=== PATIENT | male | born 1990 | race Two or more races ===

== ENCOUNTER 2024-12-09 11:16 | Inpatient (IN) | payer MEDICAID, OTHER, SELFPAY ==
[2024-12-09] VITALS (7 sets, daily range): BP systolic 97–134; BP diastolic 54–92; PULSE 68–110; RESP 14–18; TEMP 36.3–36.8; O2SAT 96–98; BMI 23.8; BMI 28.7
--- NOTE | ~2024-12-09 | FL_ITS ---
EXAMINATION: FL GUIDANCE ONLY HISTORY: LEFT THUMB CRPP COMPARISON: Correlation is made with plain films of the left thumb dated 12/09/2024. TECHNIQUE: Fluoroscopy time: 12.46 seconds. Cumulative Dose: 0.1727 mGy. DAP: 0.0104 Gym2 Images: 2. FINDINGS: Fluoroscopic spot films of the left thumb demonstrate internal fixation of the previously seen comminuted fracture of the distal phalanx with a K wire. FL/FL guidance in OR IMPRESSION: Fluoroscopy during procedure. Please see procedure report for additional information. Electronically signed by: Xander Monzon MD 12/12/2024 07:07 AM EDT
--- NOTE | ~2024-12-09 | XR_ITS ---
EXAMINATION: XR FINGER, LEFT CLINICAL INFORMATION: Trauma, thumb COMPARISON: None available. TECHNIQUE: PA hand and oblique and lateral views of the first digit of the left hand. FINDINGS: There is an oblique fracture through the proximal metaphysis of the distal phalanx of the thumb. Distal to the fracture, the bone is displaced anteriorly by a full shaft width with proximal migration and overlap measuring 5 mm. There is also an intra-articular fracture with avulsion of the dorsal ulnar base of the distal phalanx. The fragment is retracted to the level of the first proximal phalanx head. XR/XR finger LT min 2V IMPRESSION: Displaced complex intra-articular fracture of the distal phalanx of the left thumb. Distal fragment overlaps the palmar side of the base of the proximal phalanx. There is an avulsed osteochondral fragment from the distal phalanx that is displaced into the region of the IP joint and head of the first proximal phalanx on the ulnar side. Electronically signed by: Easton Wright MD 12/09/2024 11:57 AM EDT
--- NOTE | 2024-12-09 11:29 | ED_ITS ---
HPI - General Adult General Chief complaint: Wound/Laceration Stated complaint: thumb lac Time Seen by Provider: 12/09/24 14:29 History of Present Illness ED Provider: Dr. Ramon Kapoor HPI narrative: RME record for visit, please see Acct:[id number] on 12/09/2024 for full details of the patient's visit Related Data Previous Rx's ?Medication ?Instructions ?Recorded acetaminophen 325 mg tablet 650 mg (2 x 325 mg) PO Q6H PRN 12/12/24 Pain, Mild 1-3,Fever,Headache 30 days #240 tabs amoxicillin 500 mg-potassium 1 tab PO BID 14 days #28 tabs 12/12/24 clavulanate 125 mg tablet (Augmentin) docusate sodium 100 mg capsule 100 mg PO BID 7 days #1 4 caps 12/12/24 oxycodone 5 mg tablet 5 mg PO Q4H PRN Pain, Moderate(Pain Scale 4-6) 7 days #42 tabs Allergies Allergy/AdvReac Type Severity Reaction Status Date / Time No Known Allergies Allergy Verified 12/20/24 15:20 [facility] Past Medical History Medical History (Updated 12/20/24 @ 00:01 by Nazia José) Headache Surgical History Hx of tooth extraction Social History Social History Household Members: Friend(s) Housing: House Do you presently have visiting nurse or other home services: No Alcohol intake: current Alcohol intake frequency: holidays/special occasions only Patient Tobacco Use Status: Current everyday Tobacco user Tobacco use type: Cigarette Cigarettes Per Day: 3 e-Cigarette/Vaping Use: Currently Using service: No Current occupation: rt handed, construction/maintenance Physical Exam ED Vital Signs: BMI result Body Mass Index 23.8 Course Course Course Narrative: RME, this is a rapid medical exam performed by Brandon Mccain please refer to primary provider for complete H&P- 34-year-old male presents for evaluation of a laceration to his left thumb on the dorsal surface. Laceration is quite deep. Plan for x-ray to evaluate for as he is injury and rule out foreign body. Laceration was from a metal curtain. Unknown last tetanus, plan for x-ray Medications Administered Discontinued Medications Generic Name Dose Route Start Last Admin Trade Name Fabian PRN Reason Stop Dose Admin Acetaminophen 650 mg 12/09/24 18:27 12/11/24 17:41 Acetaminophen 325 Mg Tablet PO 650 mg Q6H PRN Administration Pain, Mild 1-3,fever,headache Diphtheria/Tetanus/Acell Pertussis 0.5 ml 12/09/24 11:34 12/09/24 14:37 Diphth,Pertus(Acell),Tet Adult 0.5 Ml Syringe IM 12/09/24 11:35 0.5 ml .ONCE ONE Administration Docusate Sodium 100 mg 12/09/24 21:00 12/12/24 07:14 Docusate Sodium 100 Mg Capsule PO 100 mg BID JACQUELINE Administration Hydromorphone HCl 0.25 mg 12/09/24 18:27 12/12/24 04:38 Hydromorphone Hcl 0.5 Mg/0.5 Ml Syringe IVPUSH 0.25 mg Q4H PRN Administration Pain, Severe (Pain Scale 7-10) Protocol Sodium Chloride 1,000 mls @ 125 mls/hr 12/09/24 14:59 12/09/24 23:18 Ns IV 12/09/24 22:58 Infused .Q8H STA Infusion Cefazolin Sodium/Dextrose 2 gm in 50 mls @ 100 mls/hr 12/09/24 15:19 12/09/24 15:35 Ancef IV 12/09/24 15:48 Infused ONCE ONE Infusion Lactated Ringer's 1,000 mls @ 100 mls/hr 12/09/24 18:27 12/10/24 13:09 Lr IVCONT 12/10/24 08:00 Infused .Q10H JACQUELINE Infusion Cefazolin Sodium/Dextrose 2 gm in 50 mls @ 100 mls/hr 12/09/24 23:00 12/12/24 08:48 Ancef IV Infused Q8H JACQUELINE Infusion Lidocaine HCl 5 ml 12/09/24 14:32 12/09/24 15:24 Lidocaine Hcl 1 % Mpf 5 Ml Vial INFILTRATI 12/09/24 14:33 Not Given ONCE STA Lidocaine HCl 5 ml 12/09/24 14:32 12/09/24 15:24 Lidocaine Hcl 1 % Mpf 5 Ml Vial INFILTRATI 12/09/24 14:33 Not Given ONCE ONE Morphine Sulfate 4 mg 12/09/24 14:59 12/09/24 15:05 Morphine Sulfate 4 Mg/Ml Cartridge IVPUSH 12/09/24 15:00 4 mg ONCE STA Administration Protocol Ondansetron HCl 4 mg 12/09/24 14:59 12/09/24 15:05 Ondansetron Hcl 4 Mg/2 Ml Vial IVPUSH 12/09/24 15:00 4 mg ONCE ONE Administration Oxycodone HCl 5 mg 12/09/24 18:27 12/12/24 09:08 Oxycodone Hcl Immed Release 5 Mg Tablet PO 5 mg Q4H PRN Administration Pain, Moderate(Pain Scale 4-6) Oxycodone HCl 10 mg 12/09/24 21:00 12/12/24 07:14 Oxycodone Hcl Er 10 Mg Tab.Er.12h PO 10 mg BID JACQUELINE Administration Sodium Chloride 3 ml 12/10/24 00:00 12/12/24 07:15 0.9 % Sodium Chloride Flush 3 Ml Syringe IVFLUSH 3 ml QSHIFT JACQUELINE Administration Discharge Plan Discharge Clinical Impression: Open fracture of distal phalanx of left thumb Qualifiers: Encounter type: initial encounter Fracture alignment: displaced Qualified Code(s): S62.522B - Displaced fracture of distal phalanx of left thumb, initial encounter for open fracture Patient Disposition: Xfer Other Transfer Details: Transferred to OR then admission for continued treatment Discharge Date/Time: 12/09/24 15:37
[2024-12-09] MEDS: Diphth,Pertus(ACell),Tet Adult 0.5 ML SYRINGE IM (14:37)
--- NOTE | 2024-12-09 14:53 | ED_ITS ---
HPI - Wound/Laceration General Chief Complaint: Wound/Laceration Stated Complaint: thumb lac Time Seen by Provider: 12/09/24 14:29 Source: patient Mode of arrival: ambulatory Limitations: language barrier (Kiswahili speaking only) History of Present Illness ED Provider: Dr. Ramon Kapoor HPI narrative: 34-year-old male with no significant past medical history who presents emergency department for evaluation of a left thumb injury. Patient states that he was working with his friend. They were removing an iron curtain that was attached to and iron frame. He states that they removed the iron frame and threw it to the ground. The frame then rebounded and struck the patient in the right thumb causing him to have severe pain and a laceration to his thumb. The patient's tetanus status is not up-to-date. He is complaining of 10/10 pain. Related Data Previous Rx's ?Medication ?Instructions ?Recorded acetaminophen 325 mg tablet 650 mg (2 x 325 mg) PO Q6H PRN 12/12/24 Pain, Mild 1-3,Fever,Headache 30 days #240 tabs amoxicillin 500 mg-potassium 1 tab PO BID 14 days #28 tabs 12/12/24 clavulanate 125 mg tablet (Augmentin) docusate sodium 100 mg capsule 100 mg PO BID 7 days #1 4 caps 12/12/24 oxycodone 5 mg tablet 5 mg PO Q4H PRN Pain, Moderate(Pain Scale 4-6) 7 days #42 tabs Allergies Allergy/AdvReac Type Severity Reaction Status Date / Time No Known Allergies Allergy Verified 12/09/24 11:34 Review of Systems 2 Review of Systems: Yes all other systems are reviewed and are negative PMFSH Past Medical History Medical History Headache Surgical History Hx of tooth extraction Social History Social History Household Members: Friend(s) Housing: House Do you presently have visiting nurse or other home services: No Patient Tobacco Use Status: Current everyday Tobacco user Tobacco use type: Cigarette Cigarettes Per Day: 3 e-Cigarette/Vaping Use: Currently Using service: No Physical Exam 2 Vital Signs: Vital Signs: Last Vital Signs Temp 97.2 F 12/12/24 10:37 Pulse 98 12/12/24 10:37 Resp 16 12/12/24 10:37 BP 108/67 12/12/24 10:37 Pulse Ox 97 12/12/24 10:37 O2 Del Method Room Air 12/12/24 10:37 BMI result Body Mass Index 23.8 Exam: General: Awake, alert in no distress Left thumb: 4.0 cm laceration to the distal phalanx of the thumb just below the nail, the patient's thumb appears to be vascularly intact however he is having difficulty extending his PIP joint secondary to pain Medications Administered Discontinued Medications Generic Name Dose Route Start Last Admin Trade Name Freq PRN Reason Stop Dose Admin Acetaminophen 650 mg 12/09/24 18:27 12/11/24 17:41 Acetaminophen 325 Mg Tablet PO 650 mg Q6H PRN Administration Pain, Mild 1-3,fever,headache Diphtheria/Tetanus/Acell Pertussis 0.5 ml 12/09/24 11:34 12/09/24 14:37 Diphth,Pertus(Acell),Tet Adult 0.5 Ml Syringe IM 12/09/24 11:35 0.5 ml .ONCE ONE Administration Docusate Sodium 100 mg 12/09/24 21:00 12/12/24 07:14 Docusate Sodium 100 Mg Capsule PO 100 mg BID JACQUELINE Administration Hydromorphone HCl 0.25 mg 12/09/24 18:27 12/12/24 04:38 Hydromorphone Hcl 0.5 Mg/0.5 Ml Syringe IVPUSH 0.25 mg Q4H PRN Administration Pain, Severe (Pain Scale 7-10) Protocol Sodium Chloride 1,000 mls @ 125 mls/hr 12/09/24 14:59 12/09/24 23:18 Ns IV 12/09/24 22:58 Infused .Q8H STA Infusion Cefazolin Sodium/Dextrose 2 gm in 50 mls @ 100 mls/hr 12/09/24 15:19 12/09/24 15:35 Ancef IV 12/09/24 15:48 Infused ONCE ONE Infusion Lactated Ringer's 1,000 mls @ 100 mls/hr 12/09/24 18:27 12/10/24 13:09 Lr IVCONT 12/10/24 08:00 Infused .Q10H JACQUELINE Infusion Cefazolin Sodium/Dextrose 2 gm in 50 mls @ 100 mls/hr 12/09/24 23:00 12/12/24 08:48 Ancef IV Infused Q8H JACQUELINE Infusion Lidocaine HCl 5 ml 12/09/24 14:32 12/09/24 15:24 Lidocaine Hcl 1 % Mpf 5 Ml Vial INFILTRATI 12/09/24 14:33 Not Given ONCE STA Lidocaine HCl 5 ml 12/09/24 14:32 12/09/24 15:24 Lidocaine Hcl 1 % Mpf 5 Ml Vial INFILTRATI 12/09/24 14:33 Not Given ONCE ONE Morphine Sulfate 4 mg 12/09/24 14:59 12/09/24 15:05 Morphine Sulfate 4 Mg/Ml Cartridge IVPUSH 12/09/24 15:00 4 mg ONCE STA Administration Protocol Ondansetron HCl 4 mg 12/09/24 14:59 12/09/24 15:05 Ondansetron Hcl 4 Mg/2 Ml Vial IVPUSH 12/09/24 15:00 4 mg ONCE ONE Administration Oxycodone HCl 5 mg 12/09/24 18:27 12/12/24 09:08 Oxycodone Hcl Immed Release 5 Mg Tablet PO 5 mg Q4H PRN Administration Pain, Moderate(Pain Scale 4-6) Oxycodone HCl 10 mg 12/09/24 21:00 12/12/24 07:14 Oxycodone Hcl Er 10 Mg Tab.Er.12h PO 10 mg BID JACQUELINE Administration Sodium Chloride 3 ml 12/10/24 00:00 12/12/24 07:15 0.9 % Sodium Chloride Flush 3 Ml Syringe IVFLUSH 3 ml QSHIFT JACQUELINE Administration Medical Decision Making Medical Decision Making [facility] Narrative: 34-year-old male with no significant past medical history who presents emergency department for evaluation of a left thumb injury secondary being struck by a heavy metal object. Physical examination revealed a 4.0 cm laceration to the distal phalanx of the left thumb, the thumb in his vascularly intact however the patient has difficulty extending knee PIP joint. Differential diagnosis: ?Includes but is not limited to laceration, open fracture, tendon injuries, ligament injuries Course: 15:04 X-ray of the patient's left thumb revealed a complex intra-articular fracture of the distal phalanx. This has an open fracture. I did discuss the injury with our covering orthopedic surgeon, Dr. Hernandez and he evaluated the patient in the emergency department. His plan is to take the patient to the operating room to repair this open fracture. Patient was given morphine 4 mg IV, Zofran 4 mg IV for his pain and nausea. He was also given cefazolin 2 g IV and normal saline at 125 cc an hour. Patient was given a Tdap vaccine IM. The patient will be transferred to operating room and admitted to the orthopedic service for treatment. Differential Diagnosis Differential Diagnoses: The differential diagnosis associated with the presentation includes (See above) Admission/Observation Consideration of admission/observation: Escalation of care including admission/observation considered (Yes) Consult Healthcare Provider Management of the patient was discussed with: Cover Making Machine Operator (Orthopedic surgeon: Dr. Hernandez) Radiology Impression Discussion of test interpretation with radiology: I have reviewed the radiologist's reading. Radiologist Impression: XR finger LT min 2V IMPRESSION: Displaced complex intra-articular fracture of the distal phalanx of the left thumb. Distal fragment overlaps the palmar side of the base of the proximal phalanx. There is an avulsed osteochondral fragment from the distal phalanx that is displaced into the region of the IP joint and head of the first proximal phalanx on the ulnar side. Electronically signed by: Easton Wright MD 12/09/2024 11:57 AM EDT Discharge Plan Discharge Clinical Impression: Open fracture of distal phalanx of left thumb Patient Disposition: Xfer Other Transfer Details: Transferred to OR then admission for continued treatment Discharge Date/Time: 12/09/24 15:37
--- NOTE | 2024-12-09 15:57 | PM.CNOR ---
History of Present Illness HPI Consult date: 12/09/24 Requesting physician: Ramon Kapoor Consult reason: fracture Chief complaint: thumb lac Review of Systems Review of Systems: Yes all other systems are reviewed and are negative [facility] Past Medical History Medical History (Updated 12/09/24 @ 15:36 by Bernie Juárez RN) Headache Family History Family history: reviewed and not pertinent Surgical History Surgical History (Updated 12/09/24 @ 15:34 by Bernie Juárez RN) Hx of tooth extraction Social History Social History Patient Tobacco Use Status: Current everyday Tobacco user Tobacco use type: Smokeless Tobacco Have you been hit, kicked, punched, or otherwise hurt by someone within the past year? If so, by whom?: No Are you DNR?: No Advance Directives: No Advance Directives Information Provided: Yes Meds Allergies Allergy/AdvReac Type Severity Reaction Status Date / Time No Known Allergies Allergy Verified 12/09/24 11:34 Active Medications: Current Medications Sodium Chloride (Ns) 1,000 mls @ 125 mls/hr IV .Q8H STA Stop: 12/09/24 22:58 Last Admin: 12/09/24 15:06 Dose: 125 mls/hr Home Medications ?Medication ?Instructions ?Recorded ?Confirmed ?Last Taken ?Type No Known Home Meds 12/09/24 12/09/24 Unknown History Physical Exam Vital Signs: Vital Signs: Last Vital Signs Temp 98.2 F 12/09/24 15:43 Pulse 96 12/09/24 15:43 Resp 18 12/09/24 15:43 BP 134/92 H 12/09/24 15:43 Pulse Ox 96 12/09/24 15:43 O2 Del Method Room Air 12/09/24 15:43 BMI result Body Mass Index 23.8 Const: General: cooperative, healthy appearing, no acute distress and well groomed Orientation/consciousness: oriented to person and oriented to place HEENT: Head: Yes normal to inspection, Yes normocephalic and Yes atraumatic Eyes: General: appearance normal, both eyes and all related structures Alignment and Position: alignment normal Conjunctivae: conjunctivae normal EOM: EOMs intact bilaterally Neck: Neck: Yes normal visual inspection and Yes trachea midline Resp: Other: No rerpiratory distress Effort & Inspection: normal respiratory effort and able to speak in complete sentences Cardio: Other: Palpable radial pulse with no appreciable rythmic abnormalities GI: Other: No abdominal distension Back/Spine/Pelvis: Cervical Spine: normal cervical lordosis and cervical ROM normal Skin: General skin exam: no rashes or lesions noted Neuro: General: oriented to person, oriented to place and gait normal Extrem: Other: Left thumb with open fracture of the distal phalanx. The volar neurovascular bundle appears to be intact with capillary refill intact but just proximal to the nail bed there is deep laceration with exposed bone. Results Labs Labs: All other labs normal. Diagnostic results Wrist/Hand x-ray: image reviewed (Displaced complex intra-articular fracture of the distal phalanx of the left thumb. Distal fragment overlaps the palmar side of the base of the proximal phalanx. There is an avulsed osteochondral fragment from the distal phalanx that is displaced into the region of the IP joint and head of the f) Assessment and Plan (1) Open fracture of distal phalanx of left thumb: Start date: 12/09/24 Qualifiers: Encounter type: initial encounter Fracture alignment: displaced Qualified Code(s): S62.522B - Displaced fracture of distal phalanx of left thumb, initial encounter for open fracture Status: Acute This is a 34-year-old otherwise healthy right-hand dominant gentleman who has an open fracture of the distal phalanx of the left thumb. Appears neurovascularly intact but there is a loss of dorsal skin and exposed bone with contamination of the wound. I recommend a irrigation debridement with percutaneous pinning. I discussed this with him. This may require the need for additional surgery. I informed of the risks of stiffness, infection, need for further surgery, nerve injury, loss of digit. He expressed understanding and we will proceed forward accordingly. Procedures Date of Service Date of Service: 12/09/24
--- NOTE | 2024-12-09 16:09 | P.CONAN_ITS ---
HPI - Anesthesia Eval Consult details Narrative: 34 yo M presenting for I&D with percutaneous pinning of left thumb PMFSH Active Problems Active Problems: All Active Problems Open fracture of distal phalanx of left thumb (Acute) Past Medical History Medical History (Updated 12/09/24 @ 15:36 by Bernie Juárez RN) Headache Family History Family history of problems with anesthesia: No Surgical History Surgical History (Updated 12/09/24 @ 15:34 by Bernie Juárez RN) Hx of tooth extraction History of Problems with Anesthesia: No Social History Social History Patient Tobacco Use Status: Current everyday Tobacco user Tobacco use type: Smokeless Tobacco Have you been hit, kicked, punched, or otherwise hurt by someone within the past year? If so, by whom?: No Are you DNR?: No Advance Directives: No Advance Directives Information Provided: Yes Meds Allergies Allergy/AdvReac Type Severity Reaction Status Date / Time No Known Allergies Allergy Verified 12/09/24 11:34 Active Medications: Current Medications Sodium Chloride (Ns) 1,000 mls @ 125 mls/hr IV .Q8H STA Stop: 12/09/24 22:58 Last Admin: 12/09/24 15:06 Dose: 125 mls/hr Cefazolin Sodium/Dextrose (Ancef) 2 gm in 50 mls @ 100 mls/hr IV PREOP ONE Stop: 12/09/24 16:32 Home Medications ?Medication ?Instructions ?Recorded ?Confirmed ?Last Taken ?Type No Known Home Meds 12/09/24 12/09/24 Un known History Exam Exam Date and Time: 12/09/24 1400 Height,Weight and Vital Signs: Height 5 ft 2 in Weight 58.967 kg Last Vital Signs Temp 98.2 F 12/09/24 15:43 Pulse 96 12/09/24 15:43 Resp 18 12/09/24 15:43 BP 134/92 H 12/09/24 15:43 Pulse Ox 96 12/09/24 15:43 O2 Del Method Room Air 12/09/24 15:43 Airway Mallampati Class: II TM Dist: >3cm Neck ROM: Full Partial: Upper Heart: S1S2 Lungs: CTAB Assessment and Plan Assessment Anesthesia Assessment: Anesthesia Plan Discussed and Chart Reviewed Final Anesthetic Review Family History of Problems with Anesthesia: No History of Problems with Anesthesia: No NPO: Yes ASA Class: II and Emergency Final Preanesthetic Review: No Changes in Pt Med Stat, Meds/Allgs Chart Reviewed, Consent Obtained/Reviewed and Anes Risks/Benef Reviewed Patient Risk: Low Procedure Risk: Low Anesthetic Plan Anesthetic Plan: MAC: and Agree w/ Assess. and Plan Disposition: Standard PACU
--- NOTE | 2024-12-09 17:15 | PM.OP ---
Brief Operative Note Date of Service: 12/09/24 Pre-op diagnosis: left thumb fracture, open Post-op diagnosis: same Procedure: left thumb perc pinning left thumb I&D Implants: 1.6 mm K wire Surgeon: Bijan Hernandez MD Anesthesia: GLMA and local Was an Vessel Scrapper Helper used for this Procedure?: No Estimated blood loss (mL): 25 IV fluids (mL): 500 Pathology: none sent Condition: stable Disposition: PACU
--- NOTE | 2024-12-09 17:23 | PHA.MEDREC ---
Addendum entered by Tory Arreola RPh 12/09/24 17:26: MED REC REVIEWED BY [facility] Original Note: Pharmacy Consult ? Medication Reconciliation Pharmacy reviewed med rec done by nursing. No Known Home Meds confirmed, claims match.
--- NOTE | 2024-12-09 17:26 | PC.NURSE ---
Pt received cefazolin 2gm IV in OR at 1523. Second dose not needed per Dr Hernandez in surgery occurs within one hour of cefazolin. Additional dose pulled by preop RN and given to anesthesia in case needed. Pt left preop at 1615. Second cefazolin dose was not administered in OR and was returned by anesthesiologist.
[2024-12-09] MEDS: Lactated Ringers 1,000 ML 100 ML IVCONT (18:50)
[2024-12-09] MEDS: oxyCODONE HCl ER 10 MG TAB.ER.12H PO (20:22)
[2024-12-10 03:11] VITALS: BP 115/55; PULSE 67; RESP 18; TEMP 35.9; O2SAT 97
[2024-12-10] MEDS: Lactated Ringers 1,000 ML 100 ML IVCONT (03:37)
[2024-12-10] MEDS: oxyCODONE HCl Immed Release 5 MG TABLET PO ×4 (05:53→22:24)
[2024-12-10 07:57] VITALS: BP 101/58; PULSE 74; RESP 16; TEMP 36.2; O2SAT 94
[2024-12-10] MEDS: oxyCODONE HCl ER 10 MG TAB.ER.12H PO ×2 (08:01→20:51)
--- NOTE | 2024-12-10 08:55 | PM.PNORT ---
Subjective Subjective Date of Service: 12/10/24 Interval history: POD 1 s/p CRPP Lt Thumb no overnight events resting in bed with splint intact Physical Exam Vital Signs: Vital Signs: Last Vital Signs Temp 97.1 F 12/10/24 07:57 Pulse 74 12/10/24 07:57 Resp 16 12/10/24 07:57 BP 101/58 L 12/10/24 07:57 Pulse Ox 94 12/10/24 07:57 O2 Del Method Room Air 12/10/24 07:57 BMI result Body Mass Index 28.7 Const: General: cooperative, healthy appearing and no acute distress Resp: Effort & Inspection: normal respiratory effort and able to speak in complete sentences Cardio: Rate: regular rate Peripheral pulses: Peripheral pulses 2+ throughout GI: Palpation (GI): Soft to palpation Skin: General skin exam: no rashes or lesions noted Extrem: Other: Left thumb splint c/d/i. He has good cap refill and sensation intact. Procedures Date of Service Date of Service: 12/10/24 Progress Note: A&P Assessment and plan (1) Open fracture of distal phalanx of left thumb: Status: Acute Assessment and Plan: Continue pain mgmnt iv abx x24 hrs from admission elevate arm on pillows re-eval later today by Dr Hernandez to determine need for further surgery Time Spent With Patient Time: Total time managing care of this patient today ____ minutes. Quality Stroke Does the patient have a stroke diagnosis?: No VTE Prior VTE?: No VTE Risk Level:: Surgical - low VTE Device Contraindication: N/A - Device Ordered VTE Drug Contraindication: Treatment Not Indicated
[2024-12-10 11:34] VITALS: RESP 18
--- NOTE | 2024-12-10 14:56 | MHC.CM.PN ---
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
[2024-12-10 15:25] VITALS: BP 124/68; PULSE 71; RESP 18; TEMP 36.4; O2SAT 93
--- NOTE | 2024-12-10 16:47 | PC.NURSE ---
Patient doing well, able to make needs known, ambulation to the bathroom independently. Medicated for pain throughout the shift. IVF D/C, IV ABT complete. Continue to monitor for needs.
[2024-12-10 19:40] VITALS: BP 121/72; PULSE 77; RESP 18; TEMP 36.7; O2SAT 94
--- NOTE | 2024-12-10 20:49 | HO.POSTANES ---
Post Anesthesia Evaluation Post Anesthesia Evaluation Date of Service: 12/10/24 Vital Signs: Vital Signs Temp Pulse Resp BP Pulse Ox O2 Del Method 12/10/24 19:40 98.0 F 77 18 121/72 94 Room Air 12/10/24 15:25 97.5 F 71 18 124/68 93 Room Air 12/10/24 11:34 18 Anesthesia: Monitored Mental Status: Awake Pain Control: Satisfactory Nausea/Vomiting: None Hydration: Adequate Anesthesia-Related Issues: No Anes. Related Issues
[2024-12-10] MEDS: 0.9 % Sodium Chloride Flush 3 ML SYRINGE IVFLUSH (20:55)
[2024-12-11 03:55] VITALS: BP 101/59; PULSE 82; RESP 16; TEMP 36.9; O2SAT 95
[2024-12-11] MEDS: oxyCODONE HCl ER 10 MG TAB.ER.12H PO ×2 (07:32→20:14)
[2024-12-11] MEDS: 0.9 % Sodium Chloride Flush 3 ML SYRINGE IVFLUSH ×2 (07:35→23:40)
[2024-12-11 07:52] VITALS: BP 102/59; PULSE 75; RESP 18; TEMP 36.8; O2SAT 95
--- NOTE | 2024-12-11 11:28 | PM.PNORT ---
Subjective Subjective Date of Service: 12/11/24 Interval history: POD 2 s/p CRPP Lt Thumb no overnight events resting in bed with splint intact pain well managed Physical Exam Vital Signs: Vital Signs: Last Vital Signs Temp 98.2 F 12/11/24 07:52 Pulse 75 12/11/24 07:52 Resp 18 12/11/24 07:52 BP 102/59 L 12/11/24 07:52 Pulse Ox 95 12/11/24 07:52 O2 Del Method Room Air 12/11/24 07:52 BMI result Body Mass Index 28.7 Const: General: cooperative, healthy appearing and no acute distress Resp: Effort & Inspection: normal respiratory effort and able to speak in complete sentences Cardio: Rate: regular rate Peripheral pulses: Peripheral pulses 2+ throughout GI: Palpation (GI): Soft to palpation Skin: General skin exam: no rashes or lesions noted Extrem: Other: Left thumb splint c/d/i. He has good cap refill and sensation intact. Procedures Date of Service Date of Service: 12/11/24 Progress Note: A&P Assessment and plan (1) Open fracture of distal phalanx of left thumb: Status: Acute Assessment and Plan: Continue pain mgmnt iv abx until DC elevate arm on pillows dressing change to be done tomorrow 12/12/24 Time Spent With Patient Time: Total time managing care of this patient today ____ minutes. Quality Stroke Does the patient have a stroke diagnosis?: No VTE Prior VTE?: No VTE Risk Level:: Surgical - low VTE Device Contraindication: N/A - Device Ordered VTE Drug Contraindication: Treatment Not Indicated
[2024-12-11 15:57] VITALS: BP 106/66; PULSE 77; RESP 16; TEMP 37.1; O2SAT 96
[2024-12-11 20:00] VITALS: BP 112/62; PULSE 83; RESP 18; TEMP 36.3; O2SAT 95
[2024-12-12 03:08] VITALS: BP 100/58; PULSE 69; RESP 16; TEMP 36.4; O2SAT 95
[2024-12-12] MEDS: oxyCODONE HCl ER 10 MG TAB.ER.12H PO (07:14)
[2024-12-12] MEDS: 0.9 % Sodium Chloride Flush 3 ML SYRINGE IVFLUSH (07:15)
[2024-12-12 07:29] VITALS: BP 111/63; PULSE 78; RESP 16; TEMP 36; O2SAT 95
--- NOTE | 2024-12-12 08:41 | P.DS_ITS ---
DS: Providers Provider Date of Service: 12/12/24 Date of admission: 12/09/24 16:25 Date of discharge: 12/12/24 Primary care physician: Unknown Physician Consults: 12/09/24 18:27 Consult to Case Management Routine Comment: DS: Diagnosis Discharge Diagnosis (1) Open fracture of distal phalanx of left thumb: Status: Acute DS: Summary Hospital Course Hospital Course: 34-year-old gentleman was admitted to the medical service after sustaining an injury to his left thumb on 12/09 where he was found to have an open fracture of the distal phalanx. He underwent a successful irrigation and debridement of the left thumb along with the CRPP with Dr. Hernandez. He was transferred to the floor where he recovered. The patient continued with IV antibiotics throughout his stay. Dressing change was performed upon discharge. No complications noted. Patient will keep the bandage clean dry and intact until seen in the office on 12/14/2024 for a follow up appointment. Patient will be discharged on Augmentin which she should take daily. Time Attestation Discharge Coordination Time (in mins): 30 Quality: Safe Use of Opioids Does Pt have an Active Cancer Diagnosis on the Problem List?: No Quality: Stroke Does the patient have a stroke diagnosis?: No Physical Exam Vital Signs: Vital Signs: Last Vital Signs Temp 96.8 F 12/12/24 07:29 Pulse 78 12/12/24 07:29 Resp 16 12/12/24 07:29 BP 111/63 12/12/24 07:29 Pulse Ox 95 12/12/24 07:29 O2 Del Method Room Air 12/12/24 07:29 BMI result Body Mass Index 28.7 Discharge Plan Discharge Anticipated Discharge Date/Time: 12/12/24 08:25 Patient Disposition: Home, Self-Care Discharge Diagnosis: I&D w/ CRPP left thumb Referrals: Harrison López PA [Physician Advanced Practice Nurse Psychotherapist, Hand Surgery] - 1 Week Referral Note: 12/14/24 09:30 [facility] Harrison López PA Discharge Medications: New acetaminophen 325 mg Tablet 650 mg PO Q6H PRN (Reason: Pain, Mild 1-3,Fever,Headache) 30 Days Qty: 240 0RF docusate sodium 100 mg Capsule 100 mg PO BID 7 Days Qty: 14 0RF oxycodone 5 mg Tablet 5 mg PO Q4H PRN (Reason: Pain, Moderate(Pain Scale 4-6)) 7 Days Qty: 42 0RF Rx Instructions: Partial Fill upon patient request. amoxicillin-pot clavulanate [Augmentin] 500-125 mg tablet 1 tab PO BID 14 Days Qty: 28 0RF Discharge Orders: Discharge Order (Routine); Ordered 12/12/24 Ordered By: Alhaji Nicolas Diet: Regular diet Activity on Discharge: Use cane or walker Stand Alone Forms: Patient Portal Discharge page Print Language: Chadian Care Plan Goals: . Health Concerns: None Plan of Treatment: Keep splint clean dry and intact Elevate arm above heart level Take antibiotics as directed Follow up with Orthopedics 12/14/24 09:30 [facility] Harrison López PA Assessment: As above
[2024-12-12] MEDS: oxyCODONE HCl Immed Release 5 MG TABLET PO (09:08)
--- NOTE | 2024-12-12 10:29 | MHC.CM.PN ---
Patient is discharged to home today self care. He has arranged for private transportation home.
[2024-12-12 10:37] VITALS: BP 108/67; PULSE 98; RESP 16; TEMP 36.2; O2SAT 97
--- NOTE | 2024-12-12 11:11 | PC.NURSE ---
DC instructions completed with bushwalk[employer] guide services Juanita. Pt had specific questions about admission report reflecting his workplace injury. Pt was instructed to follow up with medical records, number given to pt in DC packet.
--- NOTE | 2024-12-19 08:05 | W.PM.OPN ---
Operative Note Operative Note Date of Service: 12/09/24 Narrative: Date of Service: 12/09/24 Pre-op diagnosis: left thumb fracture, open Post-op diagnosis: same Procedure: left thumb perc pinning left thumb I&D Implants: 1.6 mm K wire Surgeon: Bijan Hernandez MD Anesthesia: GLMA and local Was an Residential Green Building Designer used for this Procedure?: No Estimated blood loss (mL): 25 IV fluids (mL): 500 Pathology: none sent Condition: stable Disposition: PACU Procedure in detail: Pateint was brought to the OR and prepped and draped in standard sterile fashion. A time-out was called to identify proper site, proper procedure and antibiotics were administered intravenously. I began by examinin the thumb. There was an open laceration at the level of the germinal matrix. A freer was used to remove the nail. The distal tip was vascularized but the distal phalanx was comminuted. The wound was free of obvious contamination. I removed all excess debris and tried to preserve as much bone as possible.I irrigated copiously and then placed a 0.62 K-wire, from distal to proximal and across the DIP joint. All attempts were made to obtain anatomic alignment in both plains. This was achieved and confirmed with visual inspection and orthogonal radiographic imaging. Once I was satisfied with the pinning, I further irrigated and confirmed the vascular status of the distal thumb. I then closed with 3.0 Nylon, loosely. The wound was then dressed with sterile dressing and the thumb splinted in a well-padded splint.
== END 2024-12-12 11:10 | disposition home or self-care (01) | DRG 316 ==
LOC: HO.ED 15:16 → HO.SSS 15:23 → HO.SSSA 16:29 → HO.S3 18:29
PROVIDERS: Orthopaedic Surgery; Admitting Provider Physician Assistant; Emergency Provider Emergency Medicine Emergency Medical Services; Visit Provider Physician Assistant
PROC: 0PSS34Z Reposition Left Thumb Phalanx with Internal Fixation Device, Percutaneous Approach (ICD-10-PCS; CPT 26756; principal; 2024-12-09 15:30)
DX: S62.522B Displaced fracture of distal phalanx of left thumb, initial encounter for open fracture (principal); F17.210 Nicotine dependence, cigarettes, uncomplicated; W20.8XXA Other cause of strike by thrown, projected or falling object, initial encounter; Z71.6 Tobacco abuse counseling; Z79.899 Other long term (current) drug therapy
CPT/HCPCS: 26756; 11012; 73140; 90715; 97166; 99221; 99282; J0690; J1171; J2003; J2250; J2270; J2405; J2704; J2795; J3010; J7120

== ENCOUNTER → 2024-12-09 11:34 | Outpatient (BNV) | payer SELFPAY | PROVIDERS: Visit Provider Radiology Diagnostic Radiology | DX: S62.522A Displaced fracture of distal phalanx of left thumb, initial encounter for closed fracture (principal) | CPT/HCPCS: 73140 ==

== ENCOUNTER → 2024-12-09 15:14 | Outpatient (BNV) | payer MEDICAID, SELFPAY | PROVIDERS: Emergency Provider Emergency Medicine Emergency Medical Services; Visit Provider Orthopaedic Surgery | DX: S62.522B Displaced fracture of distal phalanx of left thumb, initial encounter for open fracture (principal) | CPT/HCPCS: 99024 ==

== ENCOUNTER 2024-12-14 07:48 | Outpatient (REF) | payer MEDICAID, SELFPAY ==
--- NOTE | ~2024-12-14 | XR_ITS ---
EXAMINATION: XR HAND, LEFT CLINICAL INFORMATION: M79.642 - Pain in left hand COMPARISON: 12/09/2024. TECHNIQUE: PA, lateral, and oblique views of the left hand. FINDINGS: There has been interval K wire placement in the thumb traversing the distal and proximal phalanges. This is fixating the previously seen comminuted intra-articular distal phalanx fracture, with confucianism of anatomical alignment. No gross bony healing evident. There is associated laceration of the soft tissues of the thumb. There is bandaging material overlying the thumb. The remainder of the bones and soft tissues of the left hand and wrist appear normal. XR/XR hand LT min 3V IMPRESSION: K wire fixation of comminuted intra-articular distal phalanx fracture of the thumb. Electronically signed by: Shaggy Carmen MD 12/14/2024 09:42 AM EDT
== END 2024-12-14 07:49 | disposition home or self-care (01) ==
LOC: HO.HOSX 07:48
DX: S62.522B Displaced fracture of distal phalanx of left thumb, initial encounter for open fracture (principal); X58.XXXA Exposure to other specified factors, initial encounter
CPT/HCPCS: 29125; 73130; 99212

== ENCOUNTER 2024-12-14 09:27 | Outpatient (AMB) | payer MEDICAID, SELFPAY ==
--- NOTE | 2024-12-14 09:32 | MHC.OFFVIS ---
Vital Signs 12/14/24 09:35 Height 5 ft 2 in Weight 157 lb BMI 28.7 Intake Visit Reasons: PO-L Thumb CRPP/ I&D 12/09 NE Intake Note: Malcolm is a 34 year old right hand dominant male, new patient, who presents today post-operatively status post Left Thumb CRPP and I&D, DOS: 12/09/[address] Hernandez. Patient presented to [facility] ED on 12/09/24 reporting him and his friend were removing an iron curtain, while at work, that was attached to and iron frame. They removed the iron frame and threw it on the ground. The frame then rebounded striking his right thumb. Patient complains of pain today on the dorsal aspect of the IP joint of the left thumb. Patient never picked up the Oxycodone so he has been taking Tylenol along with the Augmentin. Service Learning Coordinator Required: Yes Service Learning Coordinator Language: Nurses Supervisor Services: Service Learning Coordinator Present Service Learning Coordinator Name: KIARA Isaac/LISA Allergies No Known Allergies Allergy (Verified 12/14/24 09:37) HPI HPI PO-L Thumb CRPP/ I&D 12/09 NE: Details: Malcolm is a 34 year old right hand dominant male, new patient, who presents today post-operatively status post Left Thumb CRPP and I&D, DOS: 12/09/[address] Hernandez. Patient presented to [facility] ED on 12/09/24 reporting him and his friend were removing an iron curtain, while at work, that was attached to and iron frame. They removed the iron frame and threw it on the ground. The frame then rebounded striking his right thumb. Patient complains of pain today on the dorsal aspect of the IP joint of the left thumb. Patient never picked up the Oxycodone so he has been taking Tylenol along with the Augmentin. PFSH Medical History Headache Surgical History Hx of tooth extraction Social History (Updated 12/14/24 @ 09:43 by KIARA Rojas) Household Members: Friend(s) Housing: House Do you presently have visiting nurse or other home services: No Alcohol intake: current Alcohol intake frequency: holidays/special occasions only Patient Tobacco Use Status: Current everyday Tobacco user Tobacco use type: Cigarette Cigarettes Per Day: 3 e-Cigarette/Vaping Use: Currently Using service: No Current occupation: rt handed, construction/maintenance Review of Systems Const All systems reviewed & are unremarkable except as noted in HPI and below Physical Exam Vital Signs: BMI result Body Mass Index 28.7 Extrem Other: Patient is alert, oriented, and in no acute distress. Neuro: Normal sensation of the tips of all digits of the left hand at this time Vascular: Cap refill brisk Pain: Moderate tenderness to palpation about the entire distal aspect of the left thumb ROM: Patient is able to make a closed fist and extend the 2nd through 5th digits of the left hand fully and without difficulty Skin: Significant circumferential laceration noted of the distal aspect of the left thumb K-wire noted through the most distal aspect of the left thumb, in satisfactory clinical alignment General: No ecchymosis, erythema, or evidence of infection. Psych: Appears grossly normal Affect normal Attitude cooperative Results Reviewed Results Reviewed: X-rays obtained in the office today and independently reviewed by me, Harrison López PA-C, demonstrate status post CRPP of open fracture of the left thumb with all orthopedic hardware in place and in satisfactory clinical alignment. Assessment & Plan Assessment & Plan (1) Open fracture of distal phalanx of left thumb: Code(s): S62.522B - Displaced fracture of distal phalanx of left thumb, initial encounter for open fracture Category: Medical Qualifiers: Encounter type: initial encounter Fracture alignment: displaced Qualified Code(s): S62.522B - Displaced fracture of distal phalanx of left thumb, initial encounter for open fracture Plan 1. 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
[2024-12-14 09:35] VITALS: BMI 28.7
== END 2024-12-14 10:43 | disposition home or self-care (01) ==
LOC: HO.HOS 09:28
DX: S62.522B Displaced fracture of distal phalanx of left thumb, initial encounter for open fracture (principal)
CPT/HCPCS: 29125; 99024

== ENCOUNTER → 2024-12-14 09:30 | Outpatient (BNV) | payer SELFPAY | PROVIDERS: Visit Provider Radiology Diagnostic Radiology | DX: S62.522D Displaced fracture of distal phalanx of left thumb, subsequent encounter for fracture with routine healing (principal) | CPT/HCPCS: 73130 ==

== ENCOUNTER 2024-12-20 11:20 | Outpatient (REF) | payer MEDICAID, OTHER, SELFPAY ==
--- NOTE | ~2024-12-20 | XR_ITS ---
EXAMINATION: XR HAND 3 OR MORE VIEWS LEFT HISTORY: M79.642 - Pain in left hand COMPARISON: Comparison is made with the prior examination dated 12/14/2024. FINDINGS: Four views of the left hand are submitted. Osseous mineralization is normal. The patient is again noted to be status post internal fixation of the previously seen fracture of the base of the distal phalanx of the thumb with a K wire. The fracture line remains visible. The joint spaces are preserved. The soft tissues are unremarkable. XR/XR hand LT min 3V IMPRESSION: Internal fixation of a fracture of the distal phalanx of the thumb without change. Electronically signed by: Xander Monzon MD 12/20/2024 03:03 PM EDT
== END 2024-12-20 11:21 | disposition home or self-care (01) ==
LOC: HO.HOSX 11:20
PROVIDERS: Visit Provider Orthopaedic Surgery
DX: S62.522D Displaced fracture of distal phalanx of left thumb, subsequent encounter for fracture with routine healing (principal); X58.XXXD Exposure to other specified factors, subsequent encounter
CPT/HCPCS: 73130; 99212

== ENCOUNTER 2024-12-20 14:39 | Outpatient (AMB) | payer MEDICAID, SELFPAY ==
--- NOTE | 2024-12-20 14:59 | A.OFFVIS_ITS ---
Vital Signs 12/20/24 15:00 Height 5 ft 2 in Weight 157 lb BMI 28.7 Intake Visit Reasons: PO-L Thumb CRPP/ I&D 12/09 NE-wound check Intake Note: Malcolm 34 yr old right hand dominant male presents today for his P/O visit for his left thumb CRPP & I&D wound check from DOS 12/09/24. States he is having involuntary movement, has concerns if his nail will grow back. Allergies No Known Allergies Allergy (Verified 12/20/24 15:20) HPI HPI PO-L Thumb CRPP/ I&D 12/09 NE-wound check: Details: Malcolm is a 34 year old right hand dominant Lao speaking man who presents S/P left thumb I&D & CRPP, DOS: 12/09/[address] Hernandez. This was a near amput ation injury on 12/09/24. He says he is doing well overall, but he is concerned if his nail will grow back. He has some loss of sensation in his thumb. [facility] Medical History (Updated 12/20/24 @ 00:01 by Nazia José) Headache Surgical History Hx of tooth extraction Social History Household Members: Friend(s) Housing: House Do you presently have visiting nurse or other home services: No Alcohol intake: current Alcohol intake frequency: holidays/special occasions only Patient Tobacco Use Status: Current everyday Tobacco user Tobacco use type: Cigarette Cigarettes Per Day: 3 e-Cigarette/Vaping Use: Currently Using service: No Current occupation: rt handed, construction/maintenance Review of Systems Const All systems reviewed & are unremarkable except as noted in HPI and below Physical Exam Vital Signs: BMI result Body Mass Index 28.7 Const General: no acute distress and alert Orientation/consciousness: patient oriented x3 Neuro General: patient oriented x3 Extrem Other: The patient was alert oriented and in no acute distress The transverse laceration & pin site are healing well with no erythema drainage or evidence of infection. The laceration extends about 270 degrees extending from the radial side of the finger around the dorsal aspect of the thumb to the ulnar aspect of the thumb just distal to the IP joint. Cap refill brisk to the tip of the thumb. Patient notes that he has numbness in both the radial and ulnar digital nerve distribution to the tip of the thumb. The nail is not in place, this injury may involve the germinal matrix of the nail bed K-wire remains in place Initially he did not want to move his fingers, but with encouragement he could bring his index, middle, ring, and small fingers closed to a fist and back into extension Numbness to the tip of the thumb. Normal sensation to all other digits Cap refill is brisk Radiographs: 3 views of the left hand, with attenton to the thumb, were taken and viewed by me today in clinic. They show a near amputation of the left thumb, with a fracture through the base of the distal phalanx, with intra-articular extension. The K-wire is passing retrograde through tip of thumb down to the base of the proximal phalanx, satisfactory alignment overall. Psych Appearance: grossly normal Affect: normal affect Attitude: cooperative Assessment & Plan Assessment & Plan (1) Open fracture of distal phalanx of left thumb: Code(s): S62.522B - Displaced fracture of distal phalanx of left thumb, initial encounter for open fracture Category: Medical Qualifiers: Encounter type: initial encounter Fracture alignment: displaced Qualified Code(s): S62.522B - Displaced fracture of distal phalanx of left thumb, initial encounter for open fracture Plan Assessment & plan: 1. 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 Hernandez DOI: 12/09/24 DOS: 12/09/24 The patient appears to be doing well post-operatively Time will tell whether his nail grows back or if there is a deformity. Certainly the extensor tendon will have had to have been lacerated, it is not clear whether the FPL tendon was lacerated. I educated him about the post-operative course He was placed in a short arm thumb spica cast, to be worn for the next 2 weeks I explained the signs and symptoms of infection, if the patient develops any new or worsening erythema, drainage, pain, or warmth they should contact the clinic or attend the ED. I discussed activity modifications, he is to lift nothing heavier than a cellphone for the next 4 weeks. They should also avoid any heavy impact activities, falls, or sports activities for the next 6-8 weeks He should avoid any underwater activities He will work on finger ROM while in his cast. He will follow up in 2 weeks, with X-rays, 3V L thumb, for a wound check, suture removal, and possible K-wire removal depending on healing. Scribed for Aga Avila MD by Noble Waters, medical insurance coding specialist, on 12/20/24 at 3:05 PM, EST. Orders: Orders XR hand LT min 3V Today M79.642 - Pain in left hand Coding Level of Care Code Global (47096) Diagnoses Open fracture of distal phalanx of left thumb S62.522B Encounter type: initial encounter Fracture alignment: displaced
[2024-12-20 15:00] VITALS: BMI 28.7
== END 2024-12-20 16:11 | disposition home or self-care (01) ==
LOC: HO.HOS 14:40
PROVIDERS: Visit Provider Orthopaedic Surgery
DX: S62.522B Displaced fracture of distal phalanx of left thumb, initial encounter for open fracture (principal)
CPT/HCPCS: 99024

== ENCOUNTER → 2024-12-20 14:41 | Outpatient (BNV) | payer MEDICAID, SELFPAY | PROVIDERS: Visit Provider Radiology Diagnostic Radiology | DX: S62.522K Displaced fracture of distal phalanx of left thumb, subsequent encounter for fracture with nonunion (principal) | CPT/HCPCS: 73130 ==

== ENCOUNTER 2025-01-04 11:40 | Outpatient (REF) | payer MEDICAID, OTHER, SELFPAY ==
--- NOTE | ~2025-01-04 | XR_ITS ---
EXAMINATION: XR HAND, LEFT CLINICAL INFORMATION: M79.642 - Pain in left hand COMPARISON: December 20, 2024 TECHNIQUE: PA, lateral, and oblique views of the left hand. FINDINGS: No gross callus formation in the fracture of the first digit. K wire ends 15 mm from the metacarpophalangeal joint. The metacarpal bones are intact. The second third fourth and fifth digits are intact with normal alignment. XR/XR hand LT min 3V IMPRESSION: Repositioned K wire and stable appearance of the fracture in the first digit. Electronically signed by: Brandin Ferrer MD 01/04/2025 03:00 PM EDT
== END 2025-01-04 11:41 | disposition home or self-care (01) ==
LOC: HO.HOSX 11:40
PROVIDERS: Visit Provider Orthopaedic Surgery
DX: S62.522B Displaced fracture of distal phalanx of left thumb, initial encounter for open fracture (principal); X58.XXXA Exposure to other specified factors, initial encounter
CPT/HCPCS: 73130; 99212

== ENCOUNTER 2025-01-04 13:56 | Outpatient (AMB) | payer MEDICAID, SELFPAY ==
--- NOTE | 2025-01-04 14:49 | MHC.OFFVIS ---
Intake Visit Reasons: PO-L Thumb CRPP/ I&D 12/09 NE w/xray- cast off Intake Note: Malcolm 34 year old right hand dominant Kinyarwanda speaking man who presents S/P left thumb I&D & CRPP, DOS: 12/09/[address] Hernandez. At his last visit patient was placed in a short arm thumb spica cast and was advise to keep cast clean and dry. Today cast was removed in office and xrays updated in office. Patient is having pain in his left thumb and having involuntary movements in his thumb. *patient requested last note and op note. Allergies No Known Allergies Allergy (Verified 12/20/24 15:20) HPI HPI PO-L Thumb CRPP/ I&D 12/09 NE w/xray- cast off: Details: Malcolm is a 34 year old right hand dominant Kinyarwanda speaking man who presents S/P left thumb I&D & CRPP, DOS: 12/09/[address] Hernandez. This was a near amputation injury on 12/09/24. He says he is doing well overall, and denies any pain. He says he feels a discomfort in his thumb, which is always there . He is concerned if his nail will grow back. He has some loss of sensation in his thumb. He had questions about when he could return to work. [facility] Medical History (Updated 12/20/24 @ 00:01 by Nazia José) Headache Surgical History Hx of tooth extraction Social History Household Members: Friend(s) Housing: House Do you presently have visiting nurse or other home services: No Alcohol intake: current Alcohol intake frequency: holidays/special occasions only Patient Tobacco Use Status: Current everyday Tobacco user Tobacco use type: Cigarette Cigarettes Per Day: 3 e-Cigarette/Vaping Use: Currently Using service: No Current occupation: rt handed, construction/maintenance Physical Exam Const General: no acute distress and alert Orientation/consciousness: patient oriented x3 Neuro General: patient oriented x3 Extrem Other: The patient was alert oriented and in no acute distress The transverse laceration & pin site are healing well with no erythema drainage or evidence of infection. The laceration extends ~270 degrees extending from the radial side of the finger around the dorsal aspect of the thumb to the ulnar aspect of the thumb just distal to the IP joint. K-wire removed today, which he tolerated well Cap refill brisk to the tip of the thumb. Patient notes that he has numbness in both the radial and ulnar digital nerve distribution to the tip of the thumb. The nail is starting to grow from under the eponychial fold. There was a distal fragment of nail still attached to the sterile matrix. He could bring his index, middle, ring, and small fingers closed to a fist and back into extension Mild tenderness at the fracture site Numbness to the tip of the thumb. Normal sensation to all other digits Cap refill is brisk Radiographs: 3 views of the left hand, with attention to the thumb, were taken and viewed by me today in clinic. They show a near amputation of the left thumb, with a fracture through the base of the distal phalanx, with intra-articular extension. The K-wire has backed out more than senior care compared to prior radiographs form 12/20/24, and is no longer passing retrograde through tip of thumb down to the base of the proximal phalanx. Satisfactory alignment overall. Psych Appearance: grossly normal Affect: normal affect Attitude: cooperative Assessment & Plan Assessment & Plan (1) Open fracture of distal phalanx of left thumb: Code(s): S62.522B - Displaced fracture of distal phalanx of left thumb, initial encounter for open fracture Category: Medical Qualifiers: Encounter type: initial encounter Fracture alignment: displaced Qualified Code(s): S62.522B - Displaced fracture of distal phalanx of left thumb, initial encounter for open fracture Plan Assessment & plan: 1. 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 Hernandez DOI: 12/09/24 DOS: 12/09/24 K-wire removed: 01/04/25 The patient appears to be doing well post-operatively Time will tell whether his nail grows back or if there is a deformity. Certainly the extensor tendon will have had to have been lacerated, it is not clear whether the FPL tendon was lacerated. At this time he is still able to hold his thumb in extension. I educated him about the post-operative course He was placed in a short arm thumb spica splint, to be worn like a cast except for showering, for the next 3 weeks I explained the signs and symptoms of infection, if the patient develops any new or worsening erythema, drainage, pain, or warmth they should contact the clinic or attend the ED. I discussed activity modifications, he is to lift nothing heavier than a cellphone for the next 2 weeks. They should also avoid any heavy impact activities, falls, or sports activities for the next 4-6 weeks He should avoid any underwater activities for the next 5 days He will work on finger ROM at home. He is to avoid pinching against his thumb for the next 3 weeks He was given a note to remain out of work for the next 3 weeks. He will follow up in 3 weeks, with X-rays, 3V L thumb. Discuss possible RTW on light duty. Scribed for Aga Avila MD by Noble Waters, electromedical equipment technician, on 01/04/25 at 2:50 PM, EST. Orders: Orders XR hand LT min 3V 01/04/25 M79.642 - Pain in left hand Coding Level of Care Code Global (88523) Diagnoses Open fracture of distal phalanx of left thumb S62.522B Encounter type: initial encounter Fracture alignment: displaced
== END 2025-01-04 15:35 | disposition home or self-care (01) ==
LOC: HO.HOS 13:57
PROVIDERS: Visit Provider Orthopaedic Surgery
DX: S62.522B Displaced fracture of distal phalanx of left thumb, initial encounter for open fracture (principal)
CPT/HCPCS: 99024

== ENCOUNTER → 2025-01-04 14:11 | Outpatient (BNV) | payer MEDICAID, SELFPAY | PROVIDERS: Visit Provider Radiology Diagnostic Radiology | DX: M79.642 Pain in left hand (principal) | CPT/HCPCS: 73130 ==

== ENCOUNTER 2025-01-24 13:33 | Outpatient (REF) | payer MEDICAID, OTHER, SELFPAY ==
--- NOTE | ~2025-01-24 | XR_ITS ---
EXAMINATION: XR HAND, LEFT CLINICAL INFORMATION: M79.642 - Pain in left hand COMPARISON: January 04, 2025. TECHNIQUE: PA, lateral, and oblique views of the left hand. FINDINGS: K wire has been removed. Comminuted traumatic deformity distal phalanx of the first digit. No gross callus formation. No periosteal bone formation. Soft tissue edema pattern, distal first digit. No subcutaneous emphysema. XR/XR hand LT min 3V IMPRESSION: Status post K wire removal. No gross healing comminuted fracture, distal phalanx first digit. Electronically signed by: Brandin Ferrer MD 01/24/2025 02:33 PM EST
== END 2025-01-24 13:34 | disposition home or self-care (01) ==
LOC: HO.HOSX 13:33
PROVIDERS: Visit Provider Orthopaedic Surgery
DX: S62.522D Displaced fracture of distal phalanx of left thumb, subsequent encounter for fracture with routine healing (principal); T78.40XA Allergy, unspecified, initial encounter
CPT/HCPCS: 73130; 99212

== ENCOUNTER 2025-01-24 14:17 | Outpatient (AMB) | payer MEDICAID, SELFPAY ==
--- NOTE | 2025-01-24 14:25 | MHC.OFFVIS ---
Vital Signs 01/24/25 14:36 Height 5 ft 2 in Weight 157 lb BMI 28.7 Intake Visit Reasons: PO-L Thumb CRPP/ I&D 12/09 NE w/xray Intake Note: Malcolm is a 34 year old right hand dominant, [place]an speaking male who presents today status post left thumb I&D & CRPP, DOS: 12/09/[address] Hernandez. At his last visit with Dr Avila, K-wires were removed and patient was advise to work on gentle ROM. He is to remain out of work and follow up in 3 weeks for a re-evaluation. Today patient reports having a constant stabbing sensation in his thumb, stating his discomfort is mild. He has concerns as he is not able to bend at his IP joint. He states pain level is 4 out of 10 during the day and at night his pain level is a 6 out of 10. Sizing Machine Operator Services: Sizing Machine Operator Present Sizing Machine Operator Name: Sara [id number] Allergies No Known Allergies Allergy (Verified 01/24/25 14:35) HPI HPI PO-L Thumb CRPP/ I&D 12/09 NE w/xray: Details: Malcolm is a 34 year old right hand dominant Singaporean speaking man who presents S/P left thumb I&D & CRPP, DOS: 12/09/[address] Hernandez. This was a near amputation injury on 12/09/24. Translation service used today. He complains of pain in his thumb, worse at night when trying to sleep. He describes his pain as stabbing & mild, but constant. He is concerned if his nail will grow back. He has some loss of sensation in his thumb. He had questions about when he could return to work. [facility] Medical History (Updated 01/24/25 @ 15:45 by Aga Avila MD) Headache Surgical History Hx of tooth extraction Social History Household Members: Friend(s) Housing: House Do you presently have visiting nurse or other home services: No Alcohol intake: current Alcohol intake frequency: holidays/special occasions only Patient Tobacco Use Status: Current everyday Tobacco user Tobacco use type: Cigarette Cigarettes Per Day: 3 e-Cigarette/Vaping Use: Currently Using service: No Current occupation: rt handed, construction/maintenance Physical Exam Vital Signs: BMI result Body Mass Index 28.7 Const General: no acute distress and alert Orientation/consciousness: patient oriented x3 Neuro General: patient oriented x3 Extrem Other: The patient was alert oriented and in no acute distress The transverse laceration & pin site well healed with no erythema drainage or evidence of infection. The laceration extends ~270 degrees extending from the radial side of the finger around the dorsal aspect of the thumb to the ulnar aspect of the thumb just distal to the IP joint. Cap refill brisk to the tip of the thumb. Patient notes that he has numbness in both the radial and ulnar digital nerve distribution to the tip of the thumb. The nail is starting to grow from under the eponychial fold. He could bring his index, middle, ring, and small fingers closed to a fist and back into extension Mild tenderness at the fracture site Numbness to the tip of the thumb. Normal sensation to all other digits He has some hypersensitivity particularly about the laceration around the thumb. Cap refill is brisk Radiographs: 3 views of the left hand, with attention to the thumb, were taken and viewed by me today in clinic. They show a near amputation of the left thumb, with a fracture through the base of the distal phalanx, with intra-articular extension. Satisfactory alignment overall with little evidence of interval bony healing. Psych Appearance: grossly normal Affect: normal affect Attitude: cooperative Assessment & Plan Assessment & Plan (1) Open fracture of distal phalanx of left thumb: Code(s): S62.522B - Displaced fracture of distal phalanx of left thumb, initial encounter for open fracture Category: Medical Qualifiers: Encounter type: initial encounter Fracture alignment: displaced Qualified Code(s): S62.522B - Displaced fracture of distal phalanx of left thumb, initial encounter for open fracture (2) Hypersensitivity: Code(s): T78.40XA - Allergy, unspecified, initial encounter Category: Medical Plan Assessment & plan: 1. 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 Hernandez DOI: 12/09/24 DOS: 12/09/24 K-wire removed: 01/04/25 2. Left thumb numbness and hypersensitivity Status post above injury The patient appears to be doing well post-operatively Time will tell whether his nail grows back or if there is a deformity. Certainly the extensor tendon will have had to have been lacerated, it is not clear whether the FPL tendon was lacerated. At this time he is still able to hold his thumb in extension. I educated him about the post-operative course He will discontinue his splint at this time I discussed activity modification, he is to work on ROM exercises for everything but the IP joint and desensitization training I ordered OT hand therapy to work on desensitization & normalizing function He should still limit any pinching against his thumb at this time He was given a note to remain out of work for the next 5 weeks. He will follow up in 5 weeks, with X-rays, 3V L thumb. Discuss possible RTW on light duty. Scribed for Aga Avila MD by Noble Waters, medical doctor nuclear medicine, on 01/24/25 at 2:40 PM, EST. Orders: Orders XR hand LT min 3V Today M79.642 - Pain in left hand OT Evaluation and Treatment Today S62.522B - Displaced fracture of distal phalanx of left thumb, initial encounter for open fracture, T78.40XA - Allergy, unspecified, initial encounter Coding Level of Care Code Global (53159) Diagnoses Open fracture of distal phalanx of left thumb S62.522B Encounter type: initial encounter Fracture alignment: displaced Hypersensitivity T78.40XA
[2025-01-24 14:36] VITALS: BMI 28.7
== END 2025-01-24 15:39 | disposition home or self-care (01) ==
LOC: HO.HOS 14:18
PROVIDERS: Visit Provider Orthopaedic Surgery
DX: S62.522B Displaced fracture of distal phalanx of left thumb, initial encounter for open fracture (principal); T78.40XA Allergy, unspecified, initial encounter
CPT/HCPCS: 99024

== ENCOUNTER → 2025-01-24 14:22 | Outpatient (BNV) | payer SELFPAY | PROVIDERS: Visit Provider Radiology Diagnostic Radiology | DX: M79.642 Pain in left hand (principal) | CPT/HCPCS: 73130 ==

== ENCOUNTER 2025-02-28 09:37 | Outpatient (AMB) | payer SELFPAY ==
[2025-02-28 09:58] VITALS: BMI 28.7
--- NOTE | 2025-02-28 09:58 | MHC.OFFVIS ---
Vital Signs 02/28/25 09:58 Height 5 ft 2 in Weight 157 lb BMI 28.7 Intake Visit Reasons: PO-PO-L Thumb CRPP/ I&D 12/09 NE w/xray Intake Note: Malcolm is a 34 year old right hand dominant, [place]er speaking male who presents today status post left thumb I&D & CRPP, DOS: 12/09/[address] Hernandez. At his last visit with Dr Avila he was advise to work with O.T to improve ROM. Today patient states he is still limted with thumb ROM, pain and sensitivity. Allergies No Known Allergies Allergy (Verified 02/28/25 10:15) HPI HPI PO-PO-L Thumb CRPP/ I&D 12/09 NE w/xray: Details: Malcolm is a 34 year old right hand dominant [place]er speaking man who returns for his left thumb pain & hypersensitivity. He is S/P left thumb I&D & CRPP following a near amputation, DOS: 12/09/[address] Hernandez. This was a near amputation injury on 12/09/24. He complains of pain in his thumb, worse at night when trying to sleep. He describes his pain as stabbing & mild, but constant. He says this has not really improved since his last appointment. He also says he has limited ROM of his thumb. He is concerned if his nail will grow back. He has some loss of sensation in his thumb. He had only attended his first OT hand therapy session on 02/15/25, without a next appointment scheduled. He says he is living with his family in [place] and our OT office is not convenient for him to attend. He says they were going to find a closer location for him to attend and call him back. He has not found her started OT at a different office. He says he has been working on basic exercises at home. He has not worked since this injury. He had questions about when he could return to work [facility] Medical History (Updated 01/24/25 @ 15:45 by Aga Avila MD) Headache Surgical History Hx of tooth extraction Social History Household Members: Friend(s) Housing: House Do you presently have visiting nurse or other home services: No Alcohol intake: current Alcohol intake frequency: holidays/special occasions only Patient Tobacco Use Status: Current everyday Tobacco user Tobacco use type: Cigarette Cigarettes Per Day: 3 e-Cigarette/Vaping Use: Currently Using service: No Current occupation: rt handed, construction/maintenance Review of Systems Const All systems reviewed & are unremarkable except as noted in HPI and below Physical Exam Vital Signs: BMI result Body Mass Index 28.7 Const General: no acute distress and alert Orientation/consciousness: patient oriented x3 Neuro General: patient oriented x3 Extrem Other: Evaluation of Upper Extremity: The patient is alert, oriented, and in no acute distress Neuro: Patient notes that he has numbness in both the radial and ulnar digital nerve distribution to the tip of the thumb. Normal sensation to all other digits. He has some hypersensitivity particularly about the laceration around the thumb on the radial aspect.? Vascular: Cap refill brisk ROM: He could bring his index, middle, ring, and small fingers closed to a fist and back into extension Active thumb flexion to ~30 degrees, good active extension at the IP joint The transverse laceration is well healed and extended ~270 degrees extending from the radial side of the finger around the dorsal aspect of the thumb to the ulnar aspect of the thumb just distal to the IP joint. He does not appear to have a nail growing in, and he may not regrow his nail. Radiographs: 3 views of the left hand, with attention to the thumb, were taken and viewed by me today in clinic. They show a near amputation of the left thumb, with a fracture through the base of the distal phalanx, with intra-articular extension. Satisfactory alignment overall with some evidence of interval bony healing. Psych Appearance: grossly normal Affect: normal affect Attitude: cooperative Assessment & Plan Assessment & Plan (1) Open fracture of distal phalanx of left thumb: Code(s): S62.522B - Displaced fracture of distal phalanx of left thumb, initial encounter for open fracture Category: Medical Qualifiers: Encounter type: initial encounter Fracture alignment: displaced Qualified Code(s): S62.522B - Displaced fracture of distal phalanx of left thumb, initial encounter for open fracture (2) Hypersensitivity: Code(s): T78.40XA - Allergy, unspecified, initial encounter Category: Medical Plan Assessment & plan: 1. 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 Hernandez DOI: 12/09/24 DOS: 12/09/24 K-wire removed: 01/04/25 2. Left thumb numbness and hypersensitivity S/P above injury Time will tell whether his nail grows back or if there is a deformity. Good demonstration of active thumb IP flexion and extension today. I educated him about the post-operative course I discussed activity modification, he is to work on ROM exercises for everything but the IP joint and desensitization training I emphasized the importance of participating in OT hand therapy at this point in his care. He has just started OT hand therapy on 02/15/25, he will continue to attend OT hand therapy to work on desensitization & normalizing function. He lives in [place] currently and is in the process of finding a closer location. I recommend he continue to attend out facility when possible and continue to work on his exercises at home. He should still limit any forceful pinching against his thumb at this time. He is to use his thumb for lightweight activities at this time, and picking up a manipulating light objects.. He was given a note for work to return on light duty, with a 2lb weight limit with his LUE, until his next appointment He will follow up in 5 weeks, with X-rays, 3V L thumb. Scribed for Aga Avila MD by Noble Waters, center medical director, on 02/28/25 at 10:30 AM, EST. Orders: Orders XR hand LT min 3V Today M79.642 - Pain in left hand Coding Level of Care Code Global (39107) Diagnoses Open fracture of distal phalanx of left thumb S62.522B Encounter type: initial encounter Fracture alignment: displaced Hypersensitivity T78.40XA
== END 2025-02-28 10:49 | disposition home or self-care (01) ==
LOC: HO.HOS 09:38
PROVIDERS: Visit Provider Orthopaedic Surgery
DX: S62.522B Displaced fracture of distal phalanx of left thumb, initial encounter for open fracture (principal); T78.40XA Allergy, unspecified, initial encounter
CPT/HCPCS: 99024

== ENCOUNTER → 2025-02-28 09:40 | Outpatient (BNV) | payer MEDICAID, SELFPAY | PROVIDERS: Visit Provider Radiology Diagnostic Radiology | DX: S62.632D Displaced fracture of distal phalanx of right middle finger, subsequent encounter for fracture with routine healing (principal) | CPT/HCPCS: 73130 ==

== ENCOUNTER 2025-02-28 11:34 | Outpatient (REF) | payer MEDICAID, OTHER, SELFPAY ==
--- NOTE | ~2025-02-28 | XR_ITS ---
EXAMINATION: XR HAND, LEFT CLINICAL INFORMATION: M79.642 - Pain in left hand COMPARISON: January 24 and December 14, and December 09, 2024 TECHNIQUE: PA, lateral, and oblique views of the left hand. FINDINGS: There is deformity of the distal phalanx of the thumb related to a comminuted intra-articular fracture that was previously fixed with a K wire that was visible on December 14, 2024. There is increasing bone mineral density. There is also increasing bone across the fracture. There is persistent lucency on the ulnar side which is developing sclerotic margins. There is 3 mm ulnar plus variance. XR/XR hand LT min 3V IMPRESSION: Continued healing of a fracture involving the distal phalanx of the thumb with persistent lucency on the ulnar side with increasing sclerosis of the margins. Possible ulnar lunate impaction. There is ulnar positive variance. Correlate for signs and symptoms. Electronically signed by: Easton Wright MD 02/28/2025 10:13 AM [facility]
== END 2025-02-28 11:35 | disposition home or self-care (01) ==
LOC: HO.HOSX 11:34
PROVIDERS: Visit Provider Orthopaedic Surgery
DX: S62.522D Displaced fracture of distal phalanx of left thumb, subsequent encounter for fracture with routine healing (principal); X58.XXXD Exposure to other specified factors, subsequent encounter; T78.40XD Allergy, unspecified, subsequent encounter
CPT/HCPCS: 73130